=== PATIENT | male | born 1995 | race African-American/Black ===

== ENCOUNTER 2020-04-10 22:00 | Emergency (ER) | payer OTHER ==
[~2020-04-10] VITALS: Ht 182.9 cm; Wt 121.6 kg
--- NOTE | 2020-04-10 22:19 | Emergency Room Report ---
History of Present Illness General Chief Complaint: Laceration Source: Patient Present Illness HPI Disclaimer: Please note that this report is being documented using [employer] technology. This can lead to erroneous entry secondary to incorrect interpretation by the dictating instrument. HPI: 24-year-old male presents for evaluation of left arm laceration. He states he was cutting apart boxes with a press box custodian when his dog came knocking him over falling over on the side catching himself with a press box custodian over the left arm. Applied pressure and cleaned with hydrogen peroxide. This occurred last night. Came in for closure today. Denies other injury. Tetanus updated last year. Denies significant bleeding. Denies numbness, tingling. Denies limitation to range of motion in the left upper extremity. 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 EOMI. Resp: Normal work of breathing Skin: 4 cm laceration over the left bicep extending in the subcutaneous tissue. No active bleeding. Linear, clean, no debris. MSK: Normal tone and bulk. Moving all extremities. No obvious deformity. Neuro: Awake and alert. Mentating appropriately Procedures Laceration/Wound Repair Laceration/Wound Repair : Consent: Verbal Wound Location: upper extremity Wound's Depth, Shape: superficial, linear Wound Explored: clean Betadine Prep?: Yes Anesthesia: 1% Lidocaine Volume Anesthetic (ccs): 10 Wound Debrided: None Wound Repaired With: tania Number of Sutures: 8 Sterile Dressing Applied?: Yes Patient Tolerated: Well Complications: None Medical Decision Making Diagnostic Impression: Primary Impression: Laceration ER Course 24-year-old male presents for laceration of the left upper extremity. Wound was irrigated, cleaned and closed with 8 tania. Will follow up next week for staple removal. No signs of infection. His tetanus was updated last year. Instructed to return with any wound dehiscence or signs of infection. He understands and agrees with this treatment plan. Last Vital Signs Date Time Temp Pulse Resp B/P (MAP) Pulse Ox O2 Delivery O2 Flow Rate FiO2 04/10/20 22:00 97.2 63 16 151/78 (102) 96 Room Air Disposition: HOME, SELF-CARE Condition: Stable Beto Lorenzo MD Apr 10, 2020 22:19
[2020-04-10] MEDS ORDERED: Lidocaine 1% Plain 30 ml INJ ONE (22:30)
--- NOTE | 2020-04-10 22:30 | NUR ---
ED Nurse Note: Recieved pt walk in from home, here with c/o laceration to left arm since yesterday, states was scratched while playing with his dog, large scratch like lac noted to left upper arm, pain at 5/10, no drainage noted, states tetanus up to date and dog free from disease, denies any other injuries or complaints, pt in chair, lac tray set up for MD.
[2020-04-10 23:05] VITALS: BP 151/78
--- NOTE | 2020-04-10 23:10 | NUR ---
ER DISCHARGE NOTE: Patient is cleared to be discharged per ERMD, pt is aox4, on room air, with stable vital signs. pt was given dc and prescription instructions, pt was able to verbalize understanding, pt id band removed without complications. pt is able to ambulate with steady gait. pt took all belongings.
== END 2020-04-10 23:10 | disposition home or self-care (01) ==
LOC: EMR 22:20
DX: S46.222A Laceration of muscle, fascia and tendon of other parts of biceps, left arm, initial encounter (principal); J45.909 Unspecified asthma, uncomplicated; W26.0XXA Contact with knife, initial encounter; Y93.89 Activity, other specified; Y92.019 Unspecified place in single-family (private) house as the place of occurrence of the external cause
CPT/HCPCS: 12002; 99283; J2001

== ENCOUNTER 2020-04-17 16:47 | Emergency (ER) | payer OTHER ==
[~2020-04-17] VITALS: Ht 188 cm; Wt 121.6 kg
[2020-04-17 16:49] VITALS: BP 120/68
--- NOTE | 2020-04-17 17:00 | NUR ---
ED Nurse Note: Patient presents to ER for tania removal. Patient sustained laceration to left upper arm, outuer area and had 8 tania on. Patient states one staple fell out. The wound approximated with tania; No redness, swelling or tenderness noted. Reports no fever or chills.
--- NOTE | 2020-04-17 17:03 | Emergency Room Report ---
History of Present Illness General Chief Complaint: Wound Recheck/Suture Removal Source: Patient Present Illness HPI Disclaimer: Please note that this report is being documented using [employer] technology. This can lead to erroneous entry secondary to incorrect interpretation by the dictating instrument. HPI: 24-year-old male presents for suture removal. Seen by me in the emergency department last week after he sustained a laceration to the left upper extremity. Closed with 8 tania. States 1 fell out several days ago. Denies wound dehiscence, bleeding, swelling or signs of infection. No other complaints from patient. 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 EOMI. Resp: Normal work of breathing Skin: Well approximated laceration to the left upper extremity with [address] No wound dehiscence. No edema. No purulent drainage. MSK: Normal tone and bulk. Moving all extremities. No obvious deformity. Neuro: Awake and alert. Mentating appropriately Medical Decision Making Diagnostic Impression: Primary Impression: Encounter for removal of sutures ER Course 24-year-old male presents for evaluation of staple removal. 8 tania were placed last week and one fell out. 7 tania removed today. No complications. Tell the procedure well. Wound is closed and without signs of infection. Follow-up outpatient basis as needed. Last Vital Signs Date Time Temp Pulse Resp B/P (MAP) Pulse Ox O2 Delivery O2 Flow Rate FiO2 04/17/20 16:49 98.2 63 16 120/68 (85) 100 Room Air Disposition: HOME, SELF-CARE Condition: Stable Additional Instructions: Please follow-up with your primary care doctor in the next 1 to 3 days to discuss this emergency department visit and for reevaluation. If you have any new or worsening symptoms please return to the emergency department for reevaluation. Please note that this report is being documented using [employer] technology. This can lead to erroneous entry secondary to incorrect interpretation by the dictating instrument. Beto Lorenzo MD Apr 17, 2020 17:03
--- NOTE | 2020-04-17 17:05 | NUR ---
ER DISCHARGE NOTE: Patient is cleared to be discharged per ERMD. D/C instruction given. All questions were answered. Patient ambulated out with steady gait with all her belongings.
== END 2020-04-17 17:06 | disposition home or self-care (01) ==
LOC: EMR 16:55
DX: Z48.02 Encounter for removal of sutures (principal); S41.112D Laceration without foreign body of left upper arm, subsequent encounter; X58.XXXD Exposure to other specified factors, subsequent encounter
CPT/HCPCS: 99281